=== PATIENT | female | born 1980 | race Caucasian/White ===

== ENCOUNTER → 2017-11-10 | Outpatient (CLI) | payer BC ==
[~2017-11-10] MED LIST: ALBU90OI6 INH; ALPR.5 PO; ASPI81CH PO; ATOR10 PO; Benedryl E12.5 MG/5 GT; CEPH500 PO; CYCL10 PO; ESTR2 PO; Flomax0.4 MG PO; IBUP800 PO; KETO10 PO; LOSA25; Norco 5-325 Ta1 EACH PO; OTC ALLERGY MED; OXYACE5T PO; OXYC5 PO; PARO20 PO; PRAVASTATIN SOD10 MG; PROM25 PO; PROP10 PO; SERT20L; SERT25 PO; TRAZ50 PO; Zofran Odt4 MG PO
[2017-11-10 12:27] LABS: Very Low Density Lipoprot Chol 66 mg/dL (6-28)
[2017-11-10 12:29] LABS: CHOL/HDL RATIO 5.3; Cholesterol 253 mg/dL (50-200); HDL Cholesterol 48 mg/dL (>39); LDL/HDL RATIO 2.9; Low Density Lipoprotein Chol 139 mg/dL (0-110); Triglycerides 332 mg/dL (30-140)
== END | disposition home or self-care (01) ==
LOC: LAB 11:38
PROVIDERS: Internal Medicine
DX: E78.5 Hyperlipidemia, unspecified (principal)
CPT/HCPCS: 80061

== ENCOUNTER → 2018-05-02 | Outpatient (CLI) | payer BC ==
[~2018-05-02] MED LIST changes: -LOSA25; -PRAVASTATIN SOD10 MG; -SERT20L
[2018-05-02 15:11] LABS: CHOL/HDL RATIO 5.4; Cholesterol 233 mg/dL (50-200); HDL Cholesterol 43 mg/dL (>39); LDL/HDL RATIO 3.4; Low Density Lipoprotein Chol 145 mg/dL (0-110); Triglycerides 225 mg/dL (30-140); Very Low Density Lipoprot Chol 45 mg/dL (6-28)
== END | disposition home or self-care (01) ==
LOC: LAB SHORT 11:55 → LAB 11:55
PROVIDERS: Internal Medicine
DX: E78.5 Hyperlipidemia, unspecified (principal)
CPT/HCPCS: 80061

== ENCOUNTER 2018-06-14 06:37 | Day surgery (SDC) | payer BC ==
[~2018-06-14] VITALS: Ht 167.6 cm; Wt 92.1 kg
[2018-06-14] MEDS ORDERED: SERT20L (07:13)
[2018-06-14] MEDS ORDERED: LOSA25 (07:13)
[2018-06-14] MEDS ORDERED: PRAVASTATIN SOD10 MG (07:40)
== END 2018-06-14 09:05 | disposition home or self-care (01) ==
LOC: ORSCSDS 06:37
PROVIDERS: Internal Medicine Gastroenterology
PROC: 0DJD8ZZ Inspection of Lower Intestinal Tract, Via Natural or Artificial Opening Endoscopic (ICD-10-PCS; principal; 2018-06-14 08:00)
PROC: 0DJ08ZZ Inspection of Upper Intestinal Tract, Via Natural or Artificial Opening Endoscopic (ICD-10-PCS; principal; 2018-06-14 08:00)
DX: Z15.09 Genetic susceptibility to other malignant neoplasm (principal); K57.30 Diverticulosis of large intestine without perforation or abscess without bleeding; K64.8 Other hemorrhoids; Z86.010 Personal history of colon polyps; Z80.0 Family history of malignant neoplasm of digestive organs; E03.9 Hypothyroidism, unspecified; E78.5 Hyperlipidemia, unspecified; J45.909 Unspecified asthma, uncomplicated; I10 Essential (primary) hypertension; F41.9 Anxiety disorder, unspecified; D47.3 Essential (hemorrhagic) thrombocythemia; Z79.899 Other long term (current) drug therapy; F17.210 Nicotine dependence, cigarettes, uncomplicated
CPT/HCPCS: J0330; J1980; J2405

== ENCOUNTER 2019-06-06 10:48 | Day surgery (SDC) | payer BC ==
[~2019-06-06] VITALS: Ht 167.6 cm; Wt 91.7 kg
[~2019-06-06 10:48] MED LIST changes: +LOSA25; +PRAVASTATIN SOD10 MG; +SERT20L
--- NOTE | 2019-06-06 11:25 | NUR ---
06/06/19 1125 Jessica Domínguez 1ST I.V. ATTEMPT IN RIGHT AC BY LEO 2ND I.V. ATTMEPT IN RIGHT HAND BY AILIN
== END 2019-06-06 14:57 | disposition home or self-care (01) ==
LOC: ORSCSDS 10:48
PROVIDERS: Internal Medicine Gastroenterology
PROC: 0DJD8ZZ Inspection of Lower Intestinal Tract, Via Natural or Artificial Opening Endoscopic (ICD-10-PCS; principal; 2019-06-06 12:15)
DX: Z86.010 Personal history of colon polyps (principal); Z80.0 Family history of malignant neoplasm of digestive organs; K64.8 Other hemorrhoids; K57.30 Diverticulosis of large intestine without perforation or abscess without bleeding; F41.8 Other specified anxiety disorders; J45.909 Unspecified asthma, uncomplicated; I10 Essential (primary) hypertension; E78.5 Hyperlipidemia, unspecified; Z79.82 Long term (current) use of aspirin; Z87.891 Personal history of nicotine dependence; Z79.899 Other long term (current) drug therapy
CPT/HCPCS: J1885; J2250; J2704; J7120

== ENCOUNTER 2019-08-03 13:58 | Emergency (ER) | payer BC ==
[~2019-08-03] VITALS: Ht 167.6 cm; Wt 90.7 kg
[2019-08-03] MEDS ORDERED: Esgic Tablet1 EACH PO (15:20)
== END 2019-08-03 15:27 | disposition home or self-care (01) ==
LOC: ER 13:58
DX: G43.909 Migraine, unspecified, not intractable, without status migrainosus (principal); Z91.030 Bee allergy status; Z91.040 Latex allergy status; Z79.899 Other long term (current) drug therapy; F32.9 Major depressive disorder, single episode, unspecified; E78.5 Hyperlipidemia, unspecified; F41.9 Anxiety disorder, unspecified; J45.909 Unspecified asthma, uncomplicated; Z87.891 Personal history of nicotine dependence
CPT/HCPCS: 36415; 96361; 96374; 96375; 99283-25; J0780; J1100; J1200; J1885; J7120

== ENCOUNTER 2020-07-30 10:25 | Day surgery (SDC) | payer BC, OTHER ==
[~2020-07-30] VITALS: Ht 167.6 cm; Wt 94.2 kg
[~2020-07-30 10:25] MED LIST changes: +ALLEGRA D PO; +ASPI325 PO; +CYCLOBENZAPRINE5 MG PO; +Esgic Tablet1 EACH PO; +FLUT.05NI; +LOSA25 PO; +SERT100 PO; +SIMV10 PO
--- NOTE | 2020-07-30 11:22 | NUR ---
07/30/20 1122 Naty Valdes FIRST IV ATTEMPT IN RIGHT HAND, SECOND ATTEMPT IN RIGHT FOREARM BOTH BY ORSC.HS WERE UNSUCCESSFUL. THIRD ATTEMPT IN LEFT HAND BY ORSC.RCL WAS SUCCESSFUL AND TOLERATED WELL.
--- NOTE | 2020-07-30 12:57 | NUR ---
07/30/20 Loly Zapien ARRIVING TO SDU PT REPORTED PAIN IN RECTUM D/T "SPASM". PT REPORTED PAIN TO BE 5/10 BUT STATED SHE DID NOT NEED ANY FURTHER INTERVENTIONS PRIOR TO D/C. PT STATED PAIN IMPROVED WHEN SHE CHANGED POSITIONS AND HAD IMPROVED SIGNIFICANTLY BY TIME OF D/C.
== END 2020-07-30 12:51 | disposition home or self-care (01) ==
LOC: ORSCSDS 10:25 → EDSEX 14:30 → ORSCSDS 14:30
PROVIDERS: Internal Medicine Gastroenterology
PROC: 0DJ08ZZ Inspection of Upper Intestinal Tract, Via Natural or Artificial Opening Endoscopic (ICD-10-PCS; principal; 2020-07-30 11:45)
PROC: 0DBN8ZX Excision of Sigmoid Colon, Via Natural or Artificial Opening Endoscopic, Diagnostic (ICD-10-PCS; principal; 2020-07-30 11:45)
DX: Z15.09 Genetic susceptibility to other malignant neoplasm (principal); K63.5 Polyp of colon; K64.8 Other hemorrhoids; Z86.010 Personal history of colon polyps; Z80.0 Family history of malignant neoplasm of digestive organs; E03.9 Hypothyroidism, unspecified; E78.5 Hyperlipidemia, unspecified; F41.9 Anxiety disorder, unspecified; Z79.899 Other long term (current) drug therapy
CPT/HCPCS: 88305; J2250; J2704; J7120

== ENCOUNTER 2021-07-27 10:54 | Day surgery (SDC) | payer BC, OTHER ==
[~2021-07-27] VITALS: Ht 167.6 cm; Wt 93.7 kg
[~2021-07-27 10:54] MED LIST changes: +ALBU90OI INH; +BENZ100A PO; +PRED20 PO
[2021-07-27] MEDS ORDERED: PROG100 (11:56)
== END 2021-07-27 13:50 | disposition home or self-care (01) ==
LOC: ORSCSDS 10:54
PROVIDERS: Internal Medicine Gastroenterology
PROC: 0DBL8ZX Excision of Transverse Colon, Via Natural or Artificial Opening Endoscopic, Diagnostic (ICD-10-PCS; principal; 2021-07-27 12:15)
DX: Z12.11 Encounter for screening for malignant neoplasm of colon (principal); Z86.010 Personal history of colon polyps; Z80.0 Family history of malignant neoplasm of digestive organs; Z15.09 Genetic susceptibility to other malignant neoplasm; D12.3 Benign neoplasm of transverse colon; K64.8 Other hemorrhoids; K64.4 Residual hemorrhoidal skin tags; I10 Essential (primary) hypertension; J45.909 Unspecified asthma, uncomplicated; E78.5 Hyperlipidemia, unspecified; Z79.899 Other long term (current) drug therapy; Z79.82 Long term (current) use of aspirin
CPT/HCPCS: 88305; J0330; J0461; J2250; J2405; J2704; J7120

== ENCOUNTER 2022-04-30 15:49 | Emergency (ER) | payer BC, OTHER ==
[~2022-04-30] VITALS: Ht 167.6 cm; Wt 90.7 kg
[~2022-04-30 15:49] MED LIST changes: +PROG100
[2022-04-30 16:28] LABS: BASOPHILS ABSOLUTE AUTO 0.04 K/mm3 (0.00-0.23); BASOPHILS PERCENT AUTO 1 % (0-2); EOSINOPHILS ABSOLUTE AUTO 0.24 K/mm3 (0.00-0.68); EOSINOPHILS PERCENT AUTO 3 % (0-6); Hematocrit 43.3 % (33.0-51.0); Hemoglobin 14.7 g/dL (11.5-16.0); IMMATURE GRAN ABSOLUTE AUTO 0.01 K/mm3 (0.00-0.10); IMMATURE GRAN PERCENT AUTO 0 % (0-1); LYMPHOCYTES ABSOLUTE AUTO 2.85 K/mm3 (0.84-5.20); LYMPHOCYTES PERCENT AUTO 34 % (21-46); MONOCYTES ABSOLUTE AUTO 0.62 K/mm3 (0.16-1.47); MONOCYTES PERCENT AUTO 7 % (4-13); Mean Corpuscular HGB 30.1 pg (26.0-34.0); Mean Corpuscular HGB Conc 33.9 g/dL (31.5-36.5); Mean Corpuscular Volume 89 fL (80-100); Mean Platelet Volume 9.6 fL (9.1-12.4); NEUTROPHILS ABSOLUTE AUTO 4.65 K/mm3 (1.96-9.15); NEUTROPHILS PERCENT AUTO 55 % (41-73); Platelet Count 506 K/mm3 (150-400); RDW Coefficient Variation 12.9 % (11.7-14.2); Red Blood Cell Count 4.88 M/mm3 (3.80-5.20); White Blood Cell Count 8.41 K/mm3 (4.00-11.30)
[2022-04-30 16:46] LABS: Albumin/Globulin Ratio 1.1 (0.8-1.8); Bilirubin, Total 0.4 mg/dL (0.1-1.0); Bun/Creatinine Ratio 23.6 (12.0-20.0); Calcium, Blood 9.5 mg/dL (8.5-10.1); Creatinine, Blood 0.76 mg/dL (0.40-1.00); Globulin, Blood 3.7 g/dL (2.2-4.0); Total Protein, Blood 7.7 g/dL (6.4-8.2)
== END 2022-04-30 19:47 | disposition left against medical advice (07) ==
LOC: ER 15:49
PROVIDERS: Physician Assistant
DX: R07.9 Chest pain, unspecified (principal); R10.9 Unspecified abdominal pain; Z53.21 Procedure and treatment not carried out due to patient leaving prior to being seen by health care provider
CPT/HCPCS: 71045; 80053; 83690; 84484; 85025; 93005; 93010

== ENCOUNTER 2022-08-04 12:34 | Day surgery (SDC) | payer BC, OTHER ==
[~2022-08-04] VITALS: Ht 167.6 cm; Wt 95.2 kg
== END 2022-08-04 15:18 | disposition home or self-care (01) ==
LOC: ORSCSDS 12:34
PROVIDERS: Internal Medicine Gastroenterology
PROC: 0DBN8ZX Excision of Sigmoid Colon, Via Natural or Artificial Opening Endoscopic, Diagnostic (ICD-10-PCS; principal; 2022-08-04 14:00)
PROC: 0DB68ZX Excision of Stomach, Via Natural or Artificial Opening Endoscopic, Diagnostic (ICD-10-PCS; principal; 2022-08-04 14:00)
DX: Z15.09 Genetic susceptibility to other malignant neoplasm (principal); K63.5 Polyp of colon; K64.4 Residual hemorrhoidal skin tags; Z80.0 Family history of malignant neoplasm of digestive organs; D75.839 Thrombocytosis, unspecified; E78.5 Hyperlipidemia, unspecified; E88.81 Metabolic syndrome and other insulin resistance; E03.9 Hypothyroidism, unspecified; F41.9 Anxiety disorder, unspecified; Z79.899 Other long term (current) drug therapy
CPT/HCPCS: 88305; 88342; J2250; J2704; J7120

== ENCOUNTER → 2023-08-14 | Outpatient (CLI) | payer BC, OTHER | END | disposition home or self-care (01) | LOC: LAB SHORT 09:56 → LAB 09:56 | DX: D48.5 Neoplasm of uncertain behavior of skin (principal) | CPT/HCPCS: 88304 ==

== ENCOUNTER 2023-09-19 11:02 | Day surgery (SDC) | payer BC, OTHER ==
[~2023-09-19] VITALS: Ht 167.6 cm; Wt 95.2 kg
[2023-09-19 13:58] VITALS: BP 117/71
== END 2023-09-19 14:06 | disposition home or self-care (01) ==
LOC: ORSCSDS 11:02
PROVIDERS: Internal Medicine Gastroenterology
PROC: 0DBC8ZX Excision of Ileocecal Valve, Via Natural or Artificial Opening Endoscopic, Diagnostic (ICD-10-PCS; principal; 2023-09-19 12:30)
DX: Z15.09 Genetic susceptibility to other malignant neoplasm (principal); Z86.010 Personal history of colon polyps; Z80.0 Family history of malignant neoplasm of digestive organs; D12.0 Benign neoplasm of cecum; K64.4 Residual hemorrhoidal skin tags; K57.30 Diverticulosis of large intestine without perforation or abscess without bleeding; K52.9 Noninfective gastroenteritis and colitis, unspecified; E78.5 Hyperlipidemia, unspecified; E03.9 Hypothyroidism, unspecified; F41.9 Anxiety disorder, unspecified; Z79.899 Other long term (current) drug therapy
CPT/HCPCS: 88305; J2704

== ENCOUNTER → 2024-01-26 | Outpatient (CLI) | payer OTHER, BC ==
[2024-01-26 18:01] LABS: BASOPHILS ABSOLUTE AUTO 0.04 K/mm3 (0.00-0.23); BASOPHILS PERCENT AUTO 1 % (0-2); EOSINOPHILS ABSOLUTE AUTO 0.11 K/mm3 (0.00-0.68); EOSINOPHILS PERCENT AUTO 1 % (0-6); Hematocrit 42.9 % (33.0-51.0); Hemoglobin 14.7 g/dL (11.5-16.0); IMMATURE GRAN ABSOLUTE AUTO 0.02 K/mm3 (0.00-0.10); IMMATURE GRAN PERCENT AUTO 0 % (0-1); LYMPHOCYTES ABSOLUTE AUTO 3.06 K/mm3 (0.84-5.20); LYMPHOCYTES PERCENT AUTO 37 % (21-46); MONOCYTES ABSOLUTE AUTO 0.73 K/mm3 (0.16-1.47); MONOCYTES PERCENT AUTO 9 % (4-13); Mean Corpuscular HGB Conc 34.3 g/dL (31.5-36.5); Mean Corpuscular Volume 88 fL (80-100); Mean Platelet Volume 9.9 fL (9.1-12.4); NEUTROPHILS ABSOLUTE AUTO 4.25 K/mm3 (1.96-9.15); NEUTROPHILS PERCENT AUTO 52 % (41-73); Platelet Count 527 K/mm3 (150-400); RDW Standard Deviation 41.5 fL (35.1-46.3); White Blood Cell Count 8.21 K/mm3 (4.00-11.30)
== END ==
LOC: LAB SHORT 16:57 → LAB 16:57
PROVIDERS: Nurse Practitioner
DX: D75.839 Thrombocytosis, unspecified (principal)
CPT/HCPCS: 85025

== ENCOUNTER → 2024-05-08 | Outpatient (CLI) | payer OTHER, BC ==
[2024-05-08 14:26] LABS: Albumin, Blood 4.4 g/dL (3.4-5.0); Albumin/Globulin Ratio 1.2 (0.8-1.8); Bilirubin, Total 0.6 mg/dL (0.1-1.0); Bun/Creatinine Ratio 25.6 (12.0-20.0); Calcium, Blood 9.1 mg/dL (8.5-10.1); Creatinine, Blood 0.63 mg/dL (0.40-1.00); Globulin, Blood 3.7 g/dL (2.2-4.0); Potassium, Blood 3.9 mmol/L (3.5-5.5); Total Protein, Blood 8.1 g/dL (6.4-8.2)
[2024-05-08 14:29] LABS: BASOPHILS ABSOLUTE AUTO 0.05 K/mm3 (0.00-0.23); BASOPHILS PERCENT AUTO 1 % (0-2); EOSINOPHILS ABSOLUTE AUTO 0.19 K/mm3 (0.00-0.68); EOSINOPHILS PERCENT AUTO 2 % (0-6); Hematocrit 46.1 % (33.0-51.0); Hemoglobin 15.9 g/dL (11.5-16.0); IMMATURE GRAN ABSOLUTE AUTO 0.03 K/mm3 (0.00-0.10); IMMATURE GRAN PERCENT AUTO 0 % (0-1); LYMPHOCYTES ABSOLUTE AUTO 3.13 K/mm3 (0.84-5.20); LYMPHOCYTES PERCENT AUTO 35 % (21-46); MONOCYTES ABSOLUTE AUTO 0.62 K/mm3 (0.16-1.47); MONOCYTES PERCENT AUTO 7 % (4-13); Mean Corpuscular HGB 30.7 pg (26.0-34.0); Mean Corpuscular HGB Conc 34.5 g/dL (31.5-36.5); Mean Corpuscular Volume 89 fL (80-100); Mean Platelet Volume 10.2 fL (9.1-12.4); NEUTROPHILS ABSOLUTE AUTO 5.06 K/mm3 (1.96-9.15); NEUTROPHILS PERCENT AUTO 56 % (41-73); Platelet Count 513 K/mm3 (150-400); RDW Coefficient Variation 12.9 % (11.7-14.2); RDW Standard Deviation 41.8 fL (35.1-46.3); Red Blood Cell Count 5.18 M/mm3 (3.80-5.20); White Blood Cell Count 9.08 K/mm3 (4.00-11.30)
== END ==
LOC: LAB SHORT 12:30 → LAB 12:30
PROVIDERS: Nurse Practitioner
DX: D75.839 Thrombocytosis, unspecified (principal)
CPT/HCPCS: 80053; 85025

== ENCOUNTER 2024-09-17 11:30 | Day surgery (SDC) | payer BC, OTHER ==
[~2024-09-17] VITALS: Ht 167.6 cm; Wt 93.7 kg
[~2024-09-17 11:30] MED LIST changes: +Atropine Sulfate 0.1 MG/ML 10ML SYR ONE; +Glycopyrrolate 0.2 MG/ML 1MLVIAL ONE; +Lidocaine 2% 5 ML SDV ONE; +Lidocaine HCl/Pf 1% 5 ML VIAL ONE; +Methylene Blue 1% 100 MG/10 ML VIAL ONE; +Ondansetron HCl 2 MG / ML 2ML Vial ONE; +ePHEDrine Sulfate 50 MG/ML 1ML Injection ONE; +propofoL 50 ML IV ONE
[2024-09-17] MEDS ORDERED: Lactated Ringer's 1,000 ML IV ONE (12:57)
[2024-09-17] MEDS ORDERED: Midazolam HCl 1MG / ML 2ML Vial ONE ×2 (13:31→14:28)
[2024-09-17] MEDS ORDERED: propofoL 50 ML IV ONE (13:35)
[2024-09-17] MEDS ORDERED: Phenylephrine HCl 10mg/ml 1 ml Vial ONE (14:38)
[2024-09-17 14:57] VITALS: BP 108/89
== END 2024-09-17 15:00 | disposition home or self-care (01) ==
LOC: ORSCSDS 11:30
PROVIDERS: Internal Medicine Gastroenterology
PROC: 0DBL8ZX Excision of Transverse Colon, Via Natural or Artificial Opening Endoscopic, Diagnostic (ICD-10-PCS; principal; 2024-09-17 13:00)
PROC: 0DB68ZX Excision of Stomach, Via Natural or Artificial Opening Endoscopic, Diagnostic (ICD-10-PCS; principal; 2024-09-17 13:00)
DX: Z15.09 Genetic susceptibility to other malignant neoplasm (principal); E88.810 Metabolic syndrome; K31.7 Polyp of stomach and duodenum; D12.3 Benign neoplasm of transverse colon; K44.9 Diaphragmatic hernia without obstruction or gangrene; K64.4 Residual hemorrhoidal skin tags; I10 Essential (primary) hypertension; E78.5 Hyperlipidemia, unspecified; G47.33 Obstructive sleep apnea (adult) (pediatric); Z80.0 Family history of malignant neoplasm of digestive organs; Z86.0101 Personal history of adenomatous and serrated colon polyps; Z79.899 Other long term (current) drug therapy
CPT/HCPCS: 88305; 88341; 88342; J0461; J2003; J2250; J2371; J2405; J2704; Q9968

== ENCOUNTER → 2024-10-17 | Outpatient (CLI) | payer BC, OTHER ==
[~2024-10-17] MED LIST changes: -Atropine Sulfate 0.1 MG/ML 10ML SYR ONE; -Glycopyrrolate 0.2 MG/ML 1MLVIAL ONE; -Lidocaine 2% 5 ML SDV ONE; -Lidocaine HCl/Pf 1% 5 ML VIAL ONE; -Methylene Blue 1% 100 MG/10 ML VIAL ONE; -Ondansetron HCl 2 MG / ML 2ML Vial ONE; -ePHEDrine Sulfate 50 MG/ML 1ML Injection ONE; -propofoL 50 ML IV ONE
== END ==
LOC: LAB 10:16 → LAB SHORT 10:16
DX: R39.9 Unspecified symptoms and signs involving the genitourinary system (principal)
CPT/HCPCS: 87086